=== PATIENT | male | born 1940 | race Caucasian/White ===

== ENCOUNTER 2018-01-06 09:52 | Outpatient (CLI) | payer MEDICARE, OTHER | END 2018-01-06 09:53 | disposition home or self-care (01) | LOC: EEG 09:52 | PROVIDERS: ATTEND Psychiatry & Neurology Neurology | DX: G40.019 Localization-related (focal) (partial) idiopathic epilepsy and epileptic syndromes with seizures of localized onset, intractable, without status epilepticus (principal) | CPT/HCPCS: 95819 ==